=== PATIENT | male | born 1990 | race African-American/Black ===

== ENCOUNTER 2017-05-16 07:56 | Emergency (ER) | payer OTHER ==
[2017-05-16] MEDS: FAMOTIDINE 20 MG INJ IV (08:43)
[2017-05-16] MEDS: ONDANSETRON 4 MG INJ IV (08:43)
[2017-05-16] MEDS: LIDOCAINE/MYLANTA 40 ML BTL PO (08:43)
[2017-05-16] MEDS: SOD CHLORIDE 0.9% 1,000 ML IV (08:44)
[2017-05-16] MEDS: morphine 4 MG/ML VIAL IV (08:44)
[2017-05-16 09:24] LABS: ADD MAN DIFF? NO
[2017-05-16 09:34] LABS: ADD UMIC NO; BASOPHILS % 0.3 % (0.0-2.0); EOSINOPHILS # 0.1 10^3/ul (0.0-0.5); EOSINOPHILS % 1.7 % (0.0-7.0); HEMATOCRIT 44.1 % (42.0-52.0); HEMOGLOBIN 15.3 g/dl (14.0-18.0); LYMPHOCYTES # 1.8 10^3/ul (0.8-2.9); LYMPHOCYTES % 26.2 % (15.0-51.0); MEAN CORPUSCULAR HEMOGLOBIN 31.4 pg (29.0-33.0); MEAN CORPUSCULAR HGB CONC 34.7 g/dl (32.0-37.0); MEAN CORPUSCULAR VOLUME 90.6 fl (82.0-101.0); MONOCYTE # 0.6 10^3/ul (0.3-0.9); MONOCYTES % 8.2 % (0.0-11.0); NEUTROPHIL # 4.4 10^3/ul (1.6-7.5); NEUTROPHILS % 63.3 % (39.0-77.0); PLATELET COUNT 285 10^3/UL (140-415); RED BLOOD COUNT 4.87 10^6/ul (4.70-6.10); RED CELL DISTRIBUTION WIDTH 12.2 % (11.5-14.5); UR ASCORBIC ACID NEGATIVE (NEGATIVE); UR BILIRUBIN (Dip) NEGATIVE (NEGATIVE); UR BLOOD (Dip) NEGATIVE (NEGATIVE); UR CLARITY CLEAR (CLEAR); UR COLOR YELLOW (YELLOW); UR GLUCOSE (Dip) NEGATIVE (NEGATIVE); UR KETONES (Dip) NEGATIVE (NEGATIVE); UR LEUKOCYTE ESTERASE (Dip) NEGATIVE Leu/ul (NEGATIVE); UR NITRITE (Dip) NEGATIVE (NEGATIVE); UR SPECIFIC GRAVITY (Dip) 1.025 (1.003-1.030); UR TOTAL PROTEIN (Dip) NEGATIVE (NEGATIVE); UR UROBILINOGEN (Dip) NEGATIVE (NEGATIVE)
[2017-05-16 10:10] LABS: ALANINE AMINOTRANSFERASE 53 IU/L (13-69); ALBUMIN 4.9 g/dl (3.3-4.9); ALBUMIN/GLOBULIN RATIO 1.63; ALKALINE PHOSPHATASE 89 IU/L (42-121); ANION GAP 17 (8-16); ASPARTATE AMINO TRANSFERASE 41 IU/L (15-46); BILIRUBIN,INDIRECT 0.2 mg/dl (0-1.1); BILIRUBIN,TOTAL 0.2 mg/dl (0.2-1.3); BLOOD UREA NITROGEN 16 mg/dl (7-20); CALCIUM 9.6 mg/dl (8.4-10.2); CARBON DIOXIDE 27 mmol/L (21-31); CHLORIDE 104 mmol/L (97-110); CREATININE 1.06 mg/dl (0.61-1.24); GLUCOSE 90 mg/dl (70-220); INR 0.99; LIPASE 57 U/L (23-300); POTASSIUM 4.5 mmol/L (3.5-5.1); PROTIME 13.2 Sec (11.9-14.9); SODIUM 143 mmol/L (135-144); TOTAL PROTEIN 7.9 g/dl (6.1-8.1)
[2017-05-16 10:13] LABS: PARTIAL THROMBOPLASTIN TIME 31.6 Sec (25.0-35.0)
[2017-05-16] MEDS: SOD CHLORIDE 0.9% 100 ML (11:24)
[2017-05-16] MEDS: IOHEXOL 300MG/ML 150 ML BTL (11:24)
== END 2017-05-16 12:22 | disposition home or self-care (01) ==
LOC: FTE 07:56
DX: R10.32 Left lower quadrant pain (principal); I10 Essential (primary) hypertension; F17.210 Nicotine dependence, cigarettes, uncomplicated; Z79.82 Long term (current) use of aspirin
CPT/HCPCS: 36415; 74177; 80053; 81003; 83690; 85025; 85610; 85730; 87086; 87591; 96374; 96375; 99285-25

== ENCOUNTER 2017-07-04 22:03 | Emergency (ER) | payer SELFPAY, OTHER | END 2017-07-04 23:00 | disposition left against medical advice (07) | LOC: E/R 23:00 | DX: Z53.21 Procedure and treatment not carried out due to patient leaving prior to being seen by health care provider (principal) ==

== ENCOUNTER 2018-03-17 19:55 | Emergency (ER) | payer OTHER ==
[2018-03-17] MEDS: LORAZEPAM 1 MG TAB PO (21:28)
== END 2018-03-17 22:30 | disposition home or self-care (01) ==
LOC: FTE 19:55
DX: F41.9 Anxiety disorder, unspecified (principal); I10 Essential (primary) hypertension; Z79.82 Long term (current) use of aspirin; Z87.891 Personal history of nicotine dependence
CPT/HCPCS: 93005; 99283-25